=== PATIENT | male | born 1970 | race Caucasian/White ===

== ENCOUNTER 2017-05-14 19:03 | Inpatient (IN) | payer OTHER ==
[~2017-05-14] VITALS: Ht 170.2 cm; Wt 70.3 kg
[2017-05-14] MEDS ORDERED: NICOTINE POLACRILEX 4 MG GUM-PK OF TEN BC PRN (20:30)
[2017-05-14] MEDS ORDERED: DICYCLOMINE HCL 20 MG TABLET PO PRN (20:30)
[2017-05-14] MEDS ORDERED: BUPRENORPHINE HCL 2 MG TAB.SUBL SL PRN (20:30)
[2017-05-14] MEDS ORDERED: MAG HYDROX/AL HYDROX/SIMETH 30 ML LIQUID UDC PO PRN (20:30)
[2017-05-14] MEDS ORDERED: HYDROXYZINE PAMOATE 25 MG CAPSULE PO PRN (20:30)
[2017-05-14] MEDS ORDERED: ONDANSETRON 4 MG/2 ML VIAL IM PRN (20:30)
[2017-05-14] MEDS ORDERED: METHOCARBAMOL 750 MG TABLET PO PRN (20:30)
[2017-05-14] MEDS ORDERED: ONDANSETRON ODT 4 MG TAB.RAPDIS SL PRN (20:30)
[2017-05-14] MEDS ORDERED: CLONIDINE HCL 0.1 MG TABLET PO PRN (20:30)
[2017-05-14] MEDS ORDERED: KETOROLAC TROMETHAMINE 30 MG INJ IM PRN (20:30)
[2017-05-14] MEDS ORDERED: LORAZEPAM 1 MG TABLET PO PRN (20:30)
[2017-05-14] MEDS ORDERED: MIRALAX 17 GM POWD.PACK PO PRN (20:30)
[2017-05-14] MEDS ORDERED: LOPERAMIDE HCL 2 MG CAPSULE PO PRN ×2 (20:30)
[2017-05-14] MEDS ORDERED: NICOTINE 14 MG/24HR PATCH TD PRN (20:30)
[2017-05-14] MEDS ORDERED: diphenhydrAMINE 50 MG CAPSULE PO PRN (20:30)
[2017-05-14] MEDS ORDERED: MAGNESIUM HYDROXIDE 30 ML LIQUID UDC PO PRN (20:30)
[2017-05-14] MEDS ORDERED: IBUPROFEN 600 MG TABLET PO PRN (20:30)
[2017-05-14] MEDS ORDERED: ACETAMINOPHEN 325 MG TABLET PO PRN (20:30)
--- NOTE | 2017-05-14 20:35 | NUR ---
PRE - ADMISSION NOTE : The patient is a 47-year-old male who presents to [facility] for medically supervised withdrawal from [place]. Pt. is Full Code, on Reg.Diet, allergic to cats hair. He states the cause of her ongoing and frequent use have been due to difficulty coping with chronic pain, stress, controlling impulsivity, cravings, and treatment of negative withdrawal symptoms. He states his substance use has negatively impacted his life by impairing close relationships, negatively impacting his physical and mental health. The patient denies a history of withdrawal-induced seizures, his PCP is , [place], [place]. Pt. denies history of SI/HI, denies history of audio and video hallucinations . Pt. is already seen by , new orders given. VI=545/76, HR=92, SpO2=98% with RA, RR=16, Temp=98.1. Last BM on 05/13/16. Pt's skin is warm, dry and intact. COWS=7. Pt. will be admitted to the unit.
[2017-05-14] MEDS ORDERED: GABAPENTIN 300 MG CAPSULE ONE (21:44)
[2017-05-14] MEDS ORDERED: LORAZEPAM 1 MG TABLET ONE (21:45)
[2017-05-14 21:47] LABS: *AMPHETAMINE, URINE NEGATIVE (NEGATIVE); *BARBITURATE, URINE NEGATIVE (NEGATIVE); *CANNABINOID, URINE POSITIVE (NEGATIVE); *COCCAINE, URINE NEGATIVE (NEGATIVE); *OPIATE, URINE POSITIVE (NEGATIVE); *PHENCYCLIDINE SCREEN,URINE NEGATIVE (NEGATIVE)
[2017-05-14] MEDS ORDERED: GABAPENTIN 300 MG CAPSULE PO SCH (22:00)
[2017-05-14] MEDS ORDERED: LORAZEPAM 1 MG TABLET PO ONE (22:00)
--- NOTE | 2017-05-14 22:00 | NUR ---
ADMISSION NOTE : The patient is a 47-year-old male who presents to [facility] for medically supervised withdrawal from [place]. He was admitted on 05/14/2017 at 20:46. It is his first Detox. Pt. is Full Code, on Reg.Diet, allergic to cats hair. Pt. is on FALL precautions. Pt. is started on 5 day Subutex taper on 05/15/2017. He states the cause of her ongoing and frequent use have been due to difficulty coping with chronic pain, stress, controlling impulsivity, cravings, and treatment of negative withdrawal symptoms. He states his substance use has negatively impacted his life by impairing close relationships, negatively impacting his physical and mental health. He states that learning how to manage chronic pain, control impulses, cope with anxiety. The patient denies a history of withdrawal-induced seizures, his PCP is , [place], [place]. Pt. denies history of SI/HI, denies history of audio and video hallucinations . Pt. is already seen by , new orders given. Upon assessment, pt is alert and oriented x4 , the patient reported the following symptoms of withdrawal: anxiety, restlessness, felt tremors, difficulty concentrating, anhedonia. Pt is cooperative, speech is clear and audible. Heart rate is regular. Pt denies chest pain or SOB. PERRLA, breathing is even and unlabored. Lung sounds clear in all lobes, abdomen is soft, pt complains of constipation related to opiate use. UF=296/76, HR=92, SpO2=98% with RA, RR=16, Temp=98.1. Last BM on 05/13/16. Pt's skin is warm, dry and intact. COWS=7. Pt was oriented to room and unit. Pt. was able to provide UDS sample , see results in the PC chart. Safety measures in place : bed on lowest position with side rails x2 up for safety, call light within reach. Will continue to monitor closely and offer help. SUBSTANCE ABUSE HISTORY : -NORCO 10/325 PO QD 16 pilss last 6 weeks, last use on 05/14/2016, uses since 02/2017 Occasionally Marijuana 0.5 gm smoking x3/mo . Smokes 1 pack cigarettes QD PAST Tx HISTORY : It is his first detox. PAST MEDICAL HISTORY : 1. Anxiety disorder 2. Low back pain , L5-S1 . 3.Insomnia 4.Trigeminal neuralgia 2015 Past Family History : - Alcohol use disorder , Arthritis, Mugraine, Lupus
[2017-05-14 22:48] LABS: BASOPHILS # (AUTO) 0.1 K/uL (0.0-8.0); BASOPHILS % (AUTO) 0.8 % (0.0-2.0); EOSINOPHILS # (AUTO) 0.1 K/uL (0.0-0.7); EOSINOPHILS % (AUTO) 1.8 % (0.0-7.0); HEMATOCRIT 41.3 % (36.7-47.1); HEMOGLOBIN 14.2 g/dL (12.5-16.3); LYMPHOCYTES # (AUTO) 2.1 K/uL (20.0-40.0); LYMPHOCYTES % (AUTO) 29.4 % (20.5-51.5); MEAN CORPUSCULAR HEMOGLOBIN 33.3 uug (23.8-33.4); MEAN CORPUSCULAR HGB CONC 34 g/dL (32.5-36.3); MEAN CORPUSCULAR VOLUME 96.8 fL (73.0-96.2); MONOCYTES # (AUTO) 0.5 K/uL (2.0-10.0); MONOCYTES % (AUTO) 6.7 % (0.0-11.0); NEUTROPHILS # (AUTO) 4.3 K/uL (1.8-8.9); NEUTROPHILS % (AUTO) 61.3 % (38.5-71.5); PLATELET COUNT (AUTO) 268 K/uL (152-348); RED BLOOD CELL COUNT(AUTO) 4.27 MIL/uL (4.06-5.63)
[2017-05-14] MEDS ORDERED: ATOR20TA PO (22:50)
--- NOTE | 2017-05-14 23:00 | NUR ---
PRN BENADRYL, VISTARIL, CATAPRESS Pt. complains of sleeplessness and increased level of anxiety. PRN BENADRYL, VISTARIL, CATAPRESS given as ordered. Safety measures in place : bed on lowest position with side rails x2 up for safety, call light within reach. Will continue to monitor closely and offer help.
[2017-05-14 23:01] LABS: ETHANOL < 3 MG/DL (0-0)
[2017-05-14 23:08] LABS: ALANINE AMINOTRANSFERASE 46 U/L (16-63); ALKALINE PHOSPHATASE 110 U/L (50-136); ASPARTATE AMINOTRANSFERASE 27 U/L (15-37); BILIRUBIN,TOTAL 0.3 mg/dL (0.2-1.0); CARBON DIOXIDE 31 mmol/L (21-32); CHLORIDE 101 mmol/L (98-107); CHOLESTEROL 169 mg/dL (<200); CREATININE 0.9 mg/dL (0.6-1.3); GLUCOSE 78 mg/dL (74-106); HDL CHOLESTEROL 58 mg/dL (40-60); MAGNESIUM 1.9 mg/dL (1.8-2.4); POTASSIUM 3.7 mmol/L (3.5-5.1); TOTAL PROTEIN, SERUM 7.4 g/dL (6.4-8.2); TRIGLYCERIDES 115 MG/DL (30-150); UREA NITROGEN, BLOOD 13 mg/dL (7-18)
[2017-05-14] MEDS ORDERED: diphenhydrAMINE 50 MG CAPSULE ONE (23:42)
[2017-05-14] MEDS ORDERED: CLONIDINE HCL 0.1 MG TABLET ONE (23:43)
[2017-05-14] MEDS ORDERED: HYDROXYZINE PAMOATE 25 MG CAPSULE ONE (23:45)
--- NOTE | 2017-05-15 | NUR ---
RE-ASSESSMENT BENADRYL VISTARIL, CATAPRESS Pt. is sleeping, RR=16 unlabored and even. Safety measures in place : bed on lowest position with side rails x2 up for safety, call light within reach. Will continue to monitor closely and offer help.
[2017-05-15 00:55] LABS: ACETAMINOPHEN 18.7 ug/mL (10-30)
[2017-05-15 04:00] VITALS: BP 140/85
--- NOTE | 2017-05-15 05:00 | NUR ---
PRN BENADRYL, VISTARIL, CATAPRESS ( COWS=8) Pt. complains of diarrhea and increased level of anxiety. COWS=8 . PRN IMODIUM, VISTARIL, CATAPRESS given as ordered. Safety measures in place : bed on lowest position with side rails x2 up for safety, call light within reach. Will continue to monitor closely and offer help. Addendum: 05/15/17 at 0628 by CYNDI CHEEMA RN BENADRYL=wrong entry. IMODIUM given as ordered.
[2017-05-15] MEDS ORDERED: HYDROXYZINE PAMOATE 25 MG CAPSULE ONE (05:48)
[2017-05-15] MEDS ORDERED: LOPERAMIDE HCL 2 MG CAPSULE ONE (05:48)
--- NOTE | 2017-05-15 05:59 | NUR ---
RE-ASSESSMENT IMODIUM, VISTARIL, CATAPRESS Pt. feels better, states decreased level of anxiety, is smoking at the patio. RR=16 unlabored and even. Safety measures in place : bed on lowest position with side rails x2 up for safety, call light within reach. Will continue to monitor closely and offer help.
[2017-05-15] MEDS ORDERED: CLONIDINE HCL 0.1 MG TABLET ONE (06:14)
--- NOTE | 2017-05-15 06:44 | NUR ---
END OF SHIFT NOTE : The patient is a 47-year-old male who presents to [facility] for medically supervised withdrawal from [place]. Pt. is Full Code, on Reg.Diet, allergic to cats hair. Pt. placed on 5 day Subutex taper on 05/14/2017. The patient denies a history of withdrawal-induced seizures, his PCP is , [place], [place]. Pt. denies history of SI/HI, denies history of audio and video hallucinations . Pt remains compliant with the treatment plan, pt. confirmed he took 120mg [place] on 05/14/2016 . PRN BENADRYL, CATAPRES, VISTARIL, IMODIUM, given during my shift. V/S remain WNL. RR=16, even and unlabored, lungs clear upon auscultation, abdomen soft and non- distended. Pt denies nausea, vomiting , but has small amount diarrhea x3. COWS taken when pt. was alert during the night, LAST COWS= 8 at 0400 , INTAKE= 500 ml, voided x 1, slept 3 1/2 hours. Safety measures in place : bed on lowest position with side rails x2 up for safety, call light within reach. Will continue to monitor closely and offer help.
--- NOTE | 2017-05-15 07:41 | NUR ---
START OF SHIFT RECEIVED PT RESTING IN BED, A/O X4, RESPIRATIONS EVEN AND UNLABORED. PT APPEARS TO BE ANXIOUS, AGITATED AND SHAKING. PT REPORTS HAVING NAUSEA, ANXIETY, GENERALIZED BODY ACHES, JOINT ACHES, RESTLESSNESS, FEELING ALTERNATING HOT AND COLD, CHILLS. PT REPORTED HAVING DIAARHEA AT 5 AM. ENCOURAGED PT TO CONSUME MORE FLUIDS FOR HYDRATION. SIDE RAILS UP X2, BED IN LOWEST POSITION, CALL LIGHT WITHIN REACH. ALL SAFETY MEASURES TAKEN. WILL CONTINUE TO MONITOR AND PROVIDE SUPPORT.
[2017-05-15 08:00] VITALS: BP 119/72
[2017-05-15] MEDS ORDERED: GABAPENTIN 300 MG CAPSULE PO SCH (09:00)
[2017-05-15] MEDS ORDERED: TUBERCULIN,PURIF.PROT.DERIV. 5 TU/0.1 ML TEST ID ONE (09:00)
[2017-05-15] MEDS ORDERED: BUPRENORPHINE HCL 2 MG TAB.SUBL SL SCH (09:00)
--- NOTE | 2017-05-15 10:27 | NUR ---
AMA NOTE PT LEFT AMA AT 1015 05/15/17. PT VERBALIZED HE IS "NOT READY FOR TREATMENT AND NOT COMMITTED ENOUGH." PT EDUCATED ON RISKS AND CONSEQUENCES OF LEAVING AMA. PT VERBALIZED UNDERSTANDING BUT WAS ADAMANT ABOUT LEAVING. PATIENTS MD WAS NOTIFIED AND SPOKE WITH PT ABOUT LEAVING AMA. VS WNL, PT DENIED SI/HI, SKIN INTACT. PT WAS GIVEN A LIST OF COMMUNITY RESOURCES. AMA FORMS SIGNED BY PT AND EXPLAINED. ALL BELONGINGS RETURNED TO PT.
[2017-05-15] MEDS ORDERED: ATORVASTATIN 20 MG TABLET PO SCH (21:00)
[2017-05-16] MEDS ORDERED: BUPRENORPHINE HCL 2 MG TAB.SUBL SL SCH (09:00)
[2017-05-16 09:07] LABS: HEPATITIS B SURFACE AG Negative (Negative)
[2017-05-17] MEDS ORDERED: BUPRENORPHINE HCL 2 MG TAB.SUBL SL SCH ×2 (09:00→15:00)
[2017-05-19] MEDS ORDERED: BUPRENORPHINE HCL 2 MG TAB.SUBL SL SCH (09:00)
== END 2017-05-15 10:15 | disposition left against medical advice (07) | DRG 894 ==
LOC: SRC 19:37
PROVIDERS: ADMIT Internal Medicine; ATTEND Internal Medicine
PROC: HZ2ZZZZ Detoxification Services for Substance Abuse Treatment (ICD-10-PCS; principal; 2017-05-14)
DX: F11.23 Opioid dependence with withdrawal (principal); E78.5 Hyperlipidemia, unspecified; G47.00 Insomnia, unspecified; G50.0 Trigeminal neuralgia; F17.210 Nicotine dependence, cigarettes, uncomplicated; Z83.3 Family history of diabetes mellitus; Z81.1 Family history of alcohol abuse and dependence; Z82.49 Family history of ischemic heart disease and other diseases of the circulatory system
CPT/HCPCS: 36415; 80307; 80349; 80361; 83735; 85025; 86580; 86592; 86705; 86803; 87340; 87806; G0480; G0480-TC; Q0163

== ENCOUNTER 2017-05-15 18:05 | Inpatient (IN) | payer OTHER ==
[~2017-05-15] VITALS: Ht 167.6 cm; Wt 70.3 kg
[~2017-05-15 18:05] MED LIST: ATOR20TA PO
[2017-05-15] MEDS ORDERED: MIRALAX 17 GM POWD.PACK PO PRN (19:15)
[2017-05-15] MEDS ORDERED: MAG HYDROX/AL HYDROX/SIMETH 30 ML LIQUID UDC PO PRN (19:15)
[2017-05-15] MEDS ORDERED: LOPERAMIDE HCL 2 MG CAPSULE PO PRN ×2 (19:15)
[2017-05-15] MEDS ORDERED: MAGNESIUM HYDROXIDE 30 ML LIQUID UDC PO PRN (19:15)
[2017-05-15] MEDS ORDERED: NICOTINE POLACRILEX 4 MG GUM-PK OF TEN BC PRN (19:15)
[2017-05-15] MEDS ORDERED: diphenhydrAMINE 50 MG CAPSULE PO PRN (19:15)
[2017-05-15] MEDS ORDERED: DICYCLOMINE HCL 20 MG TABLET PO PRN (19:15)
[2017-05-15] MEDS ORDERED: ACETAMINOPHEN 325 MG TABLET PO PRN (19:15)
[2017-05-15] MEDS ORDERED: NICOTINE 14 MG/24HR PATCH TD PRN (19:15)
[2017-05-15] MEDS ORDERED: ONDANSETRON 4 MG/2 ML VIAL IM PRN (19:15)
[2017-05-15] MEDS ORDERED: ONDANSETRON ODT 4 MG TAB.RAPDIS SL PRN (19:15)
[2017-05-15 20:00] VITALS: BP 126/80
[2017-05-15] MEDS: LORAZEPAM 1 MG TABLET PO PRN (20:08)
[2017-05-15] MEDS: ATORVASTATIN 20 MG TABLET PO SCH (20:08)
[2017-05-15] MEDS: GABAPENTIN 300 MG CAPSULE PO SCH (20:08)
[2017-05-15] MEDS ORDERED: GABAPENTIN 300 MG CAPSULE ONE (20:19)
[2017-05-15] MEDS ORDERED: ONDANSETRON ODT 4 MG TAB.RAPDIS ONE (20:20)
[2017-05-15] MEDS ORDERED: LORAZEPAM 1 MG TABLET ONE (20:20)
[2017-05-15] MEDS ORDERED: ATORVASTATIN 20 MG TABLET ONE (20:20)
[2017-05-15 20:24] LABS: *AMPHETAMINE, URINE NEGATIVE (NEGATIVE); *BARBITURATE, URINE NEGATIVE (NEGATIVE); *CANNABINOID, URINE POSITIVE (NEGATIVE); *COCCAINE, URINE NEGATIVE (NEGATIVE); *OPIATE, URINE POSITIVE (NEGATIVE); *PHENCYCLIDINE SCREEN,URINE NEGATIVE (NEGATIVE)
[2017-05-15] MEDS: CLONIDINE HCL 0.1 MG TABLET PO PRN (21:40)
[2017-05-15] MEDS: METHOCARBAMOL 750 MG TABLET PO PRN (21:40)
[2017-05-15] MEDS ORDERED: diphenhydrAMINE 50 MG CAPSULE ONE (21:49)
[2017-05-15] MEDS ORDERED: CLONIDINE HCL 0.1 MG TABLET ONE (21:56)
[2017-05-15] MEDS ORDERED: METHOCARBAMOL 750 MG TABLET ONE (21:56)
[2017-05-15] MEDS ORDERED: BUPRENORPHINE HCL 2 MG TAB.SUBL SL PRN (22:00)
[2017-05-16] MEDS: LORAZEPAM 1 MG TABLET PO PRN (02:32)
[2017-05-16] MEDS: HYDROXYZINE PAMOATE 25 MG CAPSULE PO PRN ×2 (02:32→21:19)
[2017-05-16] MEDS ORDERED: LORAZEPAM 1 MG TABLET ONE (02:47)
[2017-05-16] MEDS ORDERED: ACETAMINOPHEN 325 MG TABLET ONE (02:47)
[2017-05-16] MEDS ORDERED: HYDROXYZINE PAMOATE 25 MG CAPSULE ONE (02:47)
[2017-05-16] MEDS: BUPRENORPHINE HCL 2 MG TAB.SUBL SL SCH ×4 (08:44→21:17)
[2017-05-16] MEDS: GABAPENTIN 300 MG CAPSULE PO SCH ×2 (08:44→21:18)
[2017-05-16 09:00] VITALS: BP 102/61
[2017-05-16] MEDS ORDERED: TUBERCULIN,PURIF.PROT.DERIV. 5 TU/0.1 ML TEST ID ONE (09:00)
[2017-05-16] MEDS ORDERED: TRAZODONE 100 MG TABLET PO PRN (11:45)
[2017-05-16 12:34] VITALS: BP 125/78
[2017-05-16 18:26] VITALS: BP 129/77
[2017-05-16] MEDS: METHOCARBAMOL 750 MG TABLET PO PRN (18:42)
[2017-05-16] MEDS: CLONIDINE HCL 0.1 MG TABLET PO PRN (18:42)
[2017-05-16 20:00] VITALS: BP 117/81
[2017-05-16] MEDS: ATORVASTATIN 20 MG TABLET PO SCH (21:18)
[2017-05-16] MEDS: CLONIDINE HCL 0.1 MG TABLET PO SCH (21:20)
[2017-05-17 04:00] VITALS: BP 93/47
[2017-05-17 08:00] VITALS: BP 103/62
[2017-05-17] MEDS: GABAPENTIN 300 MG CAPSULE PO SCH ×2 (08:41→20:42)
[2017-05-17] MEDS: BUPRENORPHINE HCL 2 MG TAB.SUBL SL SCH ×3 (08:42→20:44)
[2017-05-17 12:00] VITALS: BP 108/75
[2017-05-17 16:00] VITALS: BP 120/63
[2017-05-17] MEDS: IBUPROFEN 600 MG TABLET PO PRN (17:36)
[2017-05-17] MEDS: HYDROXYZINE PAMOATE 25 MG CAPSULE PO PRN (17:37)
[2017-05-17 20:00] VITALS: BP 126/73
[2017-05-17] MEDS: CLONIDINE HCL 0.1 MG TABLET PO SCH (20:41)
[2017-05-17] MEDS: ATORVASTATIN 20 MG TABLET PO SCH (20:42)
[2017-05-17] MEDS: METHOCARBAMOL 750 MG TABLET PO PRN (20:43)
[2017-05-17] MEDS: TRAZODONE 100 MG TABLET PO PRN (22:26)
[2017-05-18] VITALS: BP 86/46
[2017-05-18 04:00] VITALS: BP 92/53
[2017-05-18 08:00] VITALS: BP 104/64
[2017-05-18] MEDS: GABAPENTIN 300 MG CAPSULE PO SCH ×2 (08:49→20:41)
[2017-05-18] MEDS ORDERED: BUPRENORPHINE HCL 2 MG TAB.SUBL SL SCH (09:00)
[2017-05-18 12:00] VITALS: BP 112/61
[2017-05-18] MEDS: IBUPROFEN 600 MG TABLET PO PRN (12:06)
[2017-05-18] MEDS: HYDROXYZINE PAMOATE 25 MG CAPSULE PO PRN ×2 (12:06→18:11)
[2017-05-18] MEDS: BUPRENORPHINE HCL 2 MG TAB.SUBL SL SCH ×2 (14:13→20:41)
[2017-05-18 16:00] VITALS: BP 123/78
[2017-05-18 20:00] VITALS: BP 114/63
[2017-05-18] MEDS: ATORVASTATIN 20 MG TABLET PO SCH (20:41)
[2017-05-18] MEDS: METHOCARBAMOL 750 MG TABLET PO PRN (20:42)
[2017-05-18] MEDS: CLONIDINE HCL 0.1 MG TABLET PO SCH (21:00)
[2017-05-18] MEDS: TRAZODONE 100 MG TABLET PO PRN (22:14)
[2017-05-19] VITALS: BP 120/65
[2017-05-19 08:00] VITALS: BP 107/66
[2017-05-19] MEDS: BUPRENORPHINE HCL 2 MG TAB.SUBL SL SCH ×3 (09:04→20:34)
[2017-05-19] MEDS: GABAPENTIN 300 MG CAPSULE PO SCH ×2 (09:04→14:04)
[2017-05-19] MEDS: METHOCARBAMOL 750 MG TABLET PO PRN (09:04)
[2017-05-19] MEDS: IBUPROFEN 600 MG TABLET PO PRN (11:02)
[2017-05-19 12:00] VITALS: BP 112/70
[2017-05-19] MEDS: BACLOFEN 10 MG TABLET PO SCH ×2 (14:05→20:34)
[2017-05-19 16:00] VITALS: BP 128/66
[2017-05-19 20:00] VITALS: BP 129/76
[2017-05-19] MEDS: DOCUSATE SODIUM 100 MG CAPSULE PO SCH (20:33)
[2017-05-19] MEDS: ATORVASTATIN 20 MG TABLET PO SCH (20:33)
[2017-05-19] MEDS: CLONIDINE HCL 0.1 MG TABLET PO SCH (20:34)
[2017-05-19] MEDS: HYDROXYZINE PAMOATE 25 MG CAPSULE PO PRN (20:35)
[2017-05-19] MEDS: TRAZODONE 100 MG TABLET PO PRN (20:35)
[2017-05-19] MEDS ORDERED: GABAPENTIN 300 MG CAPSULE PO SCH (21:00)
[2017-05-20] VITALS: BP 120/74
[2017-05-20 04:00] VITALS: BP 113/67
[2017-05-20 08:00] VITALS: BP 113/75
[2017-05-20] MEDS: BACLOFEN 10 MG TABLET PO SCH ×2 (08:51→14:29)
[2017-05-20] MEDS: GABAPENTIN 300 MG CAPSULE PO SCH ×2 (08:51→14:29)
[2017-05-20] MEDS: CLONIDINE HCL 0.1 MG TABLET PO SCH ×2 (08:51→20:19)
[2017-05-20] MEDS ORDERED: BUPRENORPHINE HCL 2 MG TAB.SUBL SL SCH (09:00)
[2017-05-20] MEDS: HYDROXYZINE PAMOATE 25 MG CAPSULE PO PRN ×2 (11:01→20:25)
[2017-05-20] MEDS: KETOROLAC TROMETHAMINE 30 MG INJ IM PRN ×2 (11:01→12:44)
[2017-05-20 12:00] VITALS: BP 102/63
[2017-05-20] MEDS ORDERED: MAGNESIUM CITRATE 296 ML BOTTLE PO PRN (14:45)
[2017-05-20] MEDS: BACLOFEN 20 MG TABLET PO SCH ×2 (15:00→20:20)
[2017-05-20 16:00] VITALS: BP 136/88
[2017-05-20] MEDS ORDERED: BACL20TA PO (19:39)
[2017-05-20] MEDS ORDERED: HYDR-3895 PO (19:39)
[2017-05-20] MEDS ORDERED: GABA-534 PO ×2 (19:39)
[2017-05-20] MEDS ORDERED: DICY20TA28 PO (19:39)
[2017-05-20] MEDS ORDERED: IBUP-1955 PO (19:39)
[2017-05-20] MEDS ORDERED: DOCU100C36 PO (19:39)
[2017-05-20] MEDS ORDERED: CLON0.1T14 PO (19:39)
[2017-05-20] MEDS ORDERED: TRAZ-147 PO (19:39)
[2017-05-20 20:00] VITALS: BP 122/70
[2017-05-20] MEDS: DOCUSATE SODIUM 100 MG CAPSULE PO SCH (20:19)
[2017-05-20] MEDS: ATORVASTATIN 20 MG TABLET PO SCH (20:19)
[2017-05-20] MEDS: TRAZODONE 100 MG TABLET PO PRN (20:25)
[2017-05-20] MEDS ORDERED: GABAPENTIN 300 MG CAPSULE PO SCH (21:00)
[2017-05-20] MEDS: CLONIDINE HCL 0.1 MG TABLET PO PRN (22:32)
[2017-05-20] MEDS: METHOCARBAMOL 750 MG TABLET PO PRN (22:32)
[2017-05-21] VITALS: BP 95/58
[2017-05-21 04:00] VITALS: BP 96/60
[2017-05-21] MEDS: HYDROXYZINE PAMOATE 25 MG CAPSULE PO PRN (05:48)
== END 2017-05-21 06:30 | disposition other institution (70) | DRG 895 ==
LOC: SRC 18:24
PROVIDERS: ADMIT Internal Medicine; ATTEND Internal Medicine
PROC: HZ2ZZZZ Detoxification Services for Substance Abuse Treatment (ICD-10-PCS; principal; 2017-05-15)
PROC: HZ41ZZZ Group Counseling for Substance Abuse Treatment, Behavioral (ICD-10-PCS; 2017-05-16)
PROC: HZ31ZZZ Individual Counseling for Substance Abuse Treatment, Behavioral (ICD-10-PCS; 2017-05-18)
DX: F11.23 Opioid dependence with withdrawal (principal); E78.5 Hyperlipidemia, unspecified; F17.210 Nicotine dependence, cigarettes, uncomplicated; G47.00 Insomnia, unspecified; G50.0 Trigeminal neuralgia; Z83.3 Family history of diabetes mellitus; Z82.49 Family history of ischemic heart disease and other diseases of the circulatory system; Z81.8 Family history of other mental and behavioral disorders; Z81.1 Family history of alcohol abuse and dependence
CPT/HCPCS: 70030-TC; 80307; 80349; 80361; 86580; A4663; J1885; Q0162; Q0163